=== PATIENT | male | born 1985 | race Two or more races ===

== ENCOUNTER 2024-12-27 21:52 | Emergency (ER) | payer MEDICAID ==
[~2024-12-27] VITALS: Ht 177.8 cm; Wt 105.0 kg
[2024-12-27 22:12] VITALS: TEMP 36.7; O2SAT 98
[2024-12-27] MEDS: LIDOCAINE 5% PATCH TOP SCH (23:10)
[2024-12-27] MEDS: KETOROLAC 15MG/ML VIAL IM ONE (23:11)
[2024-12-27] MEDS: DEXAMETHASONE 4MG TABLET PO ONE (23:11)
[2024-12-27] MEDS ORDERED: NAPR-1176 MT (23:27)
[2024-12-27] MEDS ORDERED: LIDO-53 TP (23:27)
[2024-12-27 23:58] VITALS: BP 151/90; PULSE 57; RESP 18; O2SAT 99
== END 2024-12-28 00:03 | disposition home or self-care (01) ==
LOC: ER 21:52
DX: G89.29 Other chronic pain (principal); M54.9 Dorsalgia, unspecified; J45.909 Unspecified asthma, uncomplicated; Z79.1 Long term (current) use of non-steroidal anti-inflammatories (NSAID); Z79.52 Long term (current) use of systemic steroids; Z98.1 Arthrodesis status
CPT/HCPCS: 99283; 96372; J1885; J8540

== ENCOUNTER 2025-03-16 23:18 | Emergency (ER) | payer MEDICAID ==
[~2025-03-16] VITALS: Ht 177.8 cm; Wt 96.0 kg
[~2025-03-16 23:18] MED LIST: LIDO-53 TP; NAPR-1176 MT
[2025-03-16 23:33] VITALS: O2SAT 99
[2025-03-17] MEDS ORDERED: IBUP-2028 PO (07:42)
[2025-03-17] MEDS ORDERED: T3 PO (07:42)
[2025-03-17] MEDS ORDERED: IBUPROFEN 400MG TABLET PO ONE (07:45)
[2025-03-17] MEDS ORDERED: KETOROLAC 30MG/ML VIAL IM ONE (08:15)
[2025-03-17 08:23] VITALS: BP 136/74; PULSE 61; RESP 18; TEMP 36.7; O2SAT 99
== END 2025-03-17 08:25 | disposition home or self-care (01) ==
LOC: ER 23:18
DX: G89.29 Other chronic pain (principal); M54.50 Low back pain, unspecified; Z98.890 Other specified postprocedural states; Z98.1 Arthrodesis status; Z79.1 Long term (current) use of non-steroidal anti-inflammatories (NSAID); Z79.899 Other long term (current) drug therapy
CPT/HCPCS: 99284; 72131; Z7610